=== PATIENT | male | born 1940 | race Caucasian/White ===

== ENCOUNTER 2017-08-28 11:59 | Day surgery (SDC) | payer OTHER ==
[2017-08-28] MEDS ORDERED: MARCAINE 0.5% ONE (12:43)
[2017-08-28] MEDS ORDERED: KENALOG INJ 40 MG IM ONE (12:43)
--- NOTE | 2017-08-28 12:46 | DR.UPDATE ---
H&P Update History and Physical Update: History and Physical reviewed and patient examined. Changes noted: NO Yes with the following:agree with Dr Hicks H&P. will proceed with facet inj bilat L3-4 and L4-5
[2017-08-28] MEDS ORDERED: XYLOCAINE 1 % (PLAIN) ONE (12:56)
[2017-08-28 13:27] VITALS: BP 120/65
== END 2017-08-28 13:25 | disposition home or self-care (01) | DRG 552 ==
LOC: SURG1 11:59
PROVIDERS: ATTEND Specialist
PROC: 3E0U3BZ Introduction of Anesthetic Agent into Joints, Percutaneous Approach (ICD-10-PCS; 2017-08-28)
PROC: 3E0U33Z Introduction of Anti-inflammatory into Joints, Percutaneous Approach (ICD-10-PCS; principal; 2017-08-28 12:00)
DX: M46.86 Other specified inflammatory spondylopathies, lumbar region (principal)
CPT/HCPCS: 64493; 64494; 76000; S0020; J2001; J3301